=== PATIENT | female | born 1945 | race Caucasian/White ===

== ENCOUNTER → 2018-01-12 | Outpatient (CLI) | payer MEDICARE, BC | LOC: M RAD 12:09 | DX: E04.2 Nontoxic multinodular goiter (principal) | CPT/HCPCS: 76536 ==

== ENCOUNTER → 2018-02-12 | Outpatient (CLI) | payer MEDICARE, BC ==
[~2018-02-12] MED LIST: LIDOCAINE 1% MDV 20ML VIAL As Ordered
== END ==
LOC: M RADPRO 07:41
DX: E04.9 Nontoxic goiter, unspecified (principal); E11.9 Type 2 diabetes mellitus without complications; J44.9 Chronic obstructive pulmonary disease, unspecified; Z79.01 Long term (current) use of anticoagulants; Z79.84 Long term (current) use of oral hypoglycemic drugs; Z79.899 Other long term (current) drug therapy; Z88.8 Allergy status to other drugs, medicaments and biological substances; Z86.711 Personal history of pulmonary embolism; Z86.79 Personal history of other diseases of the circulatory system; Z41.9 Encounter for procedure for purposes other than remedying health state, unspecified; Z98.890 Other specified postprocedural states
CPT/HCPCS: 10022

== ENCOUNTER → 2018-12-11 | Outpatient (CLI) | payer MEDICARE, BC ==
--- NOTE | 2018-12-11 18:46 | REP ---
THYROID ULTRASOUND: 12/11/2018. Comparison: 01/12/2018. Clinical history: Multinodular goiter, surveillance. Findings: The right lobe is 6.6 x 3.9 x 3 cm. The left lobe 5.4 x 2.5 x 2.2 cm. The isthmus is thickened and is now up to 17.2 mm. Previous measurements were 4.8 and 5 cm respectively as well as 5 mm for the isthmus. There is a dominant solid nodule filling much of the right lobe 4.7 x 3.7 x 2.9 cm, previously 3.9 x 2.7 x 2.5 cm. The left thyroid lobe shows two nodules. One in the interpolar region 3.1 x 2 x 1.8 cm was 3.2 x 2 x 2 cm and in the lower pole 1.6 x 1.5 x 1 cm solid lesion previously measured 2.5 x 1.4 x 1.3 cm. The isthmus previously noted 8.3 mm nodule has maximal diameter 10 mm on today's study. Heterogeneity to the echotexture of the thyroid otherwise noted. Impression: 1. Multinodular goiter with increasing size of the thyroid lobes. Overall the isthmus as well as the dominant nodule right thyroid lobe are larger, that nodule now 4.7 x 3.7 x 2.9 cm, previously 3.9 x 2.7 x 2.5 cm. Left lobe not much changed for the size of nodules. Thyroid size overall is increased. Electronically Signed by Roberto Llamas MD 12/12/2018 11:58 A
== END ==
LOC: M RAD 10:10
PROVIDERS: ATTEND Physician Assistant Medical
DX: E04.2 Nontoxic multinodular goiter (principal)

== ENCOUNTER → 2019-01-12 | Outpatient (CLI) | payer MEDICARE, BC ==
[~2019-01-12] MED LIST changes: -LIDOCAINE 1% MDV 20ML VIAL As Ordered; +LIDOCAINE 1% MDV 20ML VIAL As Ordered ONE
--- NOTE | 2019-01-12 17:27 | REP ---
ULTRASOUND-GUIDED BILATERAL THYROID BIOPSY The procedure was performed under the direct supervision of Dr. Corcoran. The risks and benefits of the procedure were explained to the patient and informed consent was obtained. The bilateral thyroid nodules were localized using ultrasound guidance. The skin was prepped and draped in a sterile fashion. 1% lidocaine was used as a local anesthetic. The left thyroid nodule was addressed first. Using ultrasound guidance four fine-needle aspirations were obtained using 25 gauge needles. The right thyroid nodule was then addressed. Using ultrasound guidance four fine-needle aspirations were obtained using 25 gauge needles. The patient tolerated the procedure well and there were no immediate complications. After the appropriate amount of monitored convalescence the patient was discharged from the department. Reviewed by JOAN Howell 01/12/2019 04:56 P Electronically Signed by Dillan Corcoran MD 01/12/2019 05:17 P
== END ==
LOC: M RADPRO 12:14
PROVIDERS: ATTEND Physician Assistant Medical
DX: E04.2 Nontoxic multinodular goiter (principal); Z79.01 Long term (current) use of anticoagulants; Z79.899 Other long term (current) drug therapy; Z88.8 Allergy status to other drugs, medicaments and biological substances

== ENCOUNTER → 2020-05-30 | Outpatient (CLI) | payer MEDICARE, BC ==
[~2020-05-30] MED LIST changes: +ATOR1TAB21 PO; +D31000TA2 PO; +ELIQ2.5T PO; -LIDOCAINE 1% MDV 20ML VIAL As Ordered ONE; +PIOG1TAB36 PO; +QC A650T3 PO
--- NOTE | 2020-06-27 11:19 | REP ---
THYROID ULTRASOUND CLINICAL: Follow up multinodular goiter. TECHNIQUE: Real-time sheriff scale and color evaluation using linear high frequency and curved array transducers. COMPARISON: 12/11/2018 FINDINGS: The thyroid gland is enlarged and diffusely heterogeneous with nodular changes appreciated similar to prior examination. Right lobe measures 6.0 x 3.8 x 2.6 cm (previously measuring 6.6 x 3.9 x 3.0 cm) and includes 2.1 x 2.0 x 2.1 cm mid pole complex nodule. The isthmus measures 15.3 mm in width and includes a 1.1 x 0.8 x 0.9 cm complex nodule. Left lobe measures 5.3 x 2.9 x 2.1 cm (previously measuring 5.4 x 2.5 x 2.2 cm) and includes 2.5 x 1.9 x 2.1 cm complex nodule. IMPRESSION: Multinodular goiter similar in overall appearance to prior examination. The nodules themselves appear somewhat changed in size and appearance. MTDD
== END ==
LOC: M RAD 09:52
PROVIDERS: ATTEND Otolaryngology
DX: E04.2 Nontoxic multinodular goiter (principal)

== ENCOUNTER → 2020-07-18 | Outpatient (CLI) | payer MEDICARE, BC ==
--- NOTE | 2020-07-18 13:40 | REP ---
INDICATION: VINCE LEG SWELLING, HX OF BLOOD CLOTS COMPARISON: None. TECHNIQUE: Real time compression and duplex Doppler interrogation of the bilateral lower extremity deep venous system is performed. FINDINGS: Bilaterally, the common femoral, superficial femoral and popliteal veins are fully compressible with transducer pressure and demonstrate normal spontaneous and phasic flow, without evidence of deep venous thrombosis. IMPRESSION: No evidence of deep venous thrombosis of the bilateral lower extremity femoral popliteal venous system. <Electronically signed by Jose Woods > 07/18/20 [id number]
== END ==
LOC: M RAD 12:46
PROVIDERS: ATTEND Internal Medicine Hematology & Oncology
DX: R22.43 Localized swelling, mass and lump, lower limb, bilateral (principal)

== ENCOUNTER → 2021-07-16 | Outpatient (CLI) | payer MEDICARE, BC ==
--- NOTE | 2021-07-16 16:02 | REP ---
INDICATION: THYROID NODULE. COMPARISON: 05/30/2020 TECHNIQUE: Real-time sonographic evaluation of the thyroid gland FINDINGS: The right lobe of the thyroid gland measures 6.6 x 3.6 x 3.7 cm and the left measures 5.8 x 2.8 x 2.5 cm. The isthmus measures 2.1 cm. Within most of the right lobe there is a large complex mass which measures 5.4 x 2.4 x 3.3 cm. There is a solid nodule in the isthmus which measures 2.3 cm. Additional smaller 1 cm size nodule seen superior to this. In the left lobe of the thyroid gland there are 2 solid nodules 1 measures 3.8 x 2 x 2.2 cm and the other 1.8 x 2 x 2.1 cm. IMPRESSION: Enlarged thyroid gland with multinodular goiter increased slightly from the prior exam as described above. <Electronically signed by Clement Ingram > 07/16/21 [id number]
== END ==
LOC: M RAD 13:48
PROVIDERS: ATTEND Otolaryngology
DX: E04.2 Nontoxic multinodular goiter (principal)

== ENCOUNTER → 2021-09-11 | Outpatient (CLI) | payer MEDICARE, BC ==
[~2021-09-11] MED LIST changes: +ISOVUE-370 76% 100ML VIAL As Ordered ONE
[2021-09-11 11:30] LABS: BLOOD UREA NITROGEN 18 MG/DL (7-18); CREATININE FOR GFR 0.84 MG/DL (0.55-1.30); GLOMERULAR FILTRATION RATE > 60.0 (>39)
== END ==
LOC: M RAD 09:31
PROVIDERS: ATTEND Otolaryngology
DX: E04.2 Nontoxic multinodular goiter (principal); R13.10 Dysphagia, unspecified; R49.0 Dysphonia
CPT/HCPCS: 36415; 70491; 82565; 84520; Q9967

== ENCOUNTER → 2023-05-27 | Outpatient (CLI) | payer MEDICARE, BC ==
[~2023-05-27] MED LIST changes: +ALBU8.5H; +BREO1INH; -D31000TA2 PO; +GNP650TA8 PO; -ISOVUE-370 76% 100ML VIAL As Ordered ONE; +JARD1TAB; +VITA100093 PO
== END ==
LOC: M RAD 13:37
PROVIDERS: ATTEND Otolaryngology
DX: E04.2 Nontoxic multinodular goiter (principal)